=== PATIENT | male | born 1990 | race Caucasian/White ===

== ENCOUNTER 2018-03-20 05:03 | Emergency (ER) | payer OTHER ==
[~2018-03-20] VITALS: Ht 182.9 cm; Wt 129.3 kg
[2018-03-20] MEDS ORDERED: ALEVE220 MG (05:14)
[2018-03-20] MEDS ORDERED: BENADRYL25 MG (05:14)
[2018-03-20] MEDS ORDERED: VENTOLIN HFA 1818 GM INH (05:20)
[2018-03-20] MEDS ORDERED: ALLEGRA ALLERG180 MG PO (05:20)
[2018-03-20] MEDS ORDERED: ZPAK PO (05:20)
[2018-03-20] MEDS ORDERED: PREDNISONE 20 M20 M1 PO (05:20)
[2018-03-20 05:30] VITALS: BP 171/113
== END 2018-03-20 05:29 | disposition home or self-care (01) ==
LOC: M.ERS 05:03
DX: J40 Bronchitis, not specified as acute or chronic (principal); Z88.5 Allergy status to narcotic agent; Z88.6 Allergy status to analgesic agent

== ENCOUNTER 2020-04-03 00:06 | Emergency (ER) | payer OTHER ==
[~2020-04-03] VITALS: Ht 185.4 cm; Wt 138.3 kg
[~2020-04-03 00:06] MED LIST: ALEVE220 MG; ALLEGRA ALLERG180 MG PO; BENADRYL25 MG; PREDNISONE 20 M20 M1 PO; VENTOLIN HFA 1818 GM INH; ZPAK PO
[2020-04-03] MEDS ORDERED: BACTRIM DS TAB1 EAC1 PO (01:01)
[2020-04-03 01:19] VITALS: BP 138/85
== END 2020-04-03 01:19 | disposition home or self-care (01) ==
LOC: M.ERS 00:06
DX: L03.115 Cellulitis of right lower limb (principal); Z88.6 Allergy status to analgesic agent

== ENCOUNTER 2021-07-16 02:55 | Emergency (ER) | payer OTHER ==
[~2021-07-16] VITALS: Ht 180.3 cm; Wt 121.1 kg
[~2021-07-16 02:55] MED LIST changes: +BACTRIM DS TAB1 EAC1 PO
[2021-07-16 03:21] LABS: ABSOLUTE BASOPHILS 0.1 thou/uL (0.0-0.2); ABSOLUTE EOSINOPHILS 0.1 thou/uL (0.0-0.7); ABSOLUTE LYMPHOCYTES 1.8 thou/uL (0.8-5.3); ABSOLUTE MONOCYTES 0.5 thou/uL (0.0-1.2); ABSOLUTE NEUTROPHILS 5.4 thou/uL (1.6-8.1); BASOPHILS 0.8 %; HEMATOCRIT 40.8 % (42.0-52.0); HEMOGLOBIN 14.1 gm/dL (14.0-18.0); LYMPHOCYTES 22.8 %; MCH 29.5 pg (26.0-34.0); MCHC 34.5 g/dL (28.0-37.0); MCV 85.4 fL (80.0-100.0); MONOCYTES 6.6 %; MPV 7.8 fl. (7.2-11.1); NUCLEATED RBCS 0 /100WBC; PLATELET COUNT* 212 thou/uL (150-400); POLYS 68.8 %; RBC 4.78 mil/uL (4.50-6.00); RDW-CV 12.7 % (10.5-14.5); WBC 7.9 thou/uL (4.0-11.0)
[2021-07-16 03:28] LABS: CALCIUM 8.5 mg/dL (8.5-10.1); CREATININE 0.8 mg/dL (0.6-1.3); POTASSIUM 3.2 mmol/L (3.5-5.1)
[2021-07-16 06:40] VITALS: BP 105/65
== END 2021-07-16 06:40 | disposition home or self-care (01) ==
LOC: M.ERS 02:55
PROVIDERS: Emergency Medicine
DX: R07.89 Other chest pain (principal); Z98.84 Bariatric surgery status; Z88.6 Allergy status to analgesic agent; V89.2XXA Person injured in unspecified motor-vehicle accident, traffic, initial encounter; Y93.I9 Activity, other involving external motion; Y92.488 Other paved roadways as the place of occurrence of the external cause; Y99.8 Other external cause status